=== PATIENT | male | born 1980 | race Caucasian/White ===

== ENCOUNTER 2017-07-28 08:45 | Emergency (ER) | payer BC ==
--- NOTE | 2017-07-28 09:24 | EDM.PDOC ---
ED HPI GENERAL MEDICAL PROBLEM - General Chief Complaint: Fever Stated Complaint: HIGH TEMP. Time Seen by Provider: 07/28/17 09:08 Source of Information: Reports: Patient History Limitations: Reports: No Limitations - History of Present Illness INITIAL COMMENTS - FREE TEXT/NARRATIVE: History of present illness: []Patient has had 2 days of high fevers to 103 with a cough and mild sore throat. Fevers come down with 600 mg of Advil. He denies any vomiting, diarrhea sinus pain or headache. He did not have a flu shot this year. Review of systems: As per history of present illness and below otherwise all systems reviewed and negative. Past medical history: As per history of present illness and as reviewed below otherwise noncontributory. Surgical history: As per history of present illness and as reviewed below otherwise noncontributory. Social history: No reported history of drug or alcohol abuse. Family history: As per history of present illness and as reviewed below otherwise noncontributory. Physical exam: General: Well developed, well nourished in NAD HEENT: Atraumatic, normocephalic, pupils reactive, negative for conjunctival pallor or scleral icterus, mucous membranes moist, throat clear no erythema, neck supple, nontender, trachea midline. TMs clear no sinus tenderness Lungs: Clear to auscultation, breath sounds equal bilaterally, chest nontender. No wheezing or respiratory distress Heart: S1S2, regular, negative for clicks, rubs, or JVD. Abdomen: Soft, nondistended, nontender. Negative for masses or hepatosplenomegaly. Negative for costovertebral tenderness. Pelvis: Stable nontender. Genitourinary: Deferred. Rectal: Deferred. Extremities: Atraumatic, negative for cords or calf pain. Neurovascular unremarkable. Neuro: Awake, alert, oriented. Cranial nerves II through XII unremarkable. Cerebellum unremarkable. Motor and sensory unremarkable throughout. Exam nonfocal. Diagnostics: []Chest x-ray shows Bilateral infiltrates, CBC and chemistries normal influenza negative, vital signs stable not hypoxic on room air Therapeutics: []Ceftriaxone IM given Impression: []Bilateral pneumonia Plan: []Zithromax by mouth, albuterol inhaler for shortness of breath and cough, 3 days off work follow-up with primary care return if symptoms worsen Definitive disposition and diagnosis as appropriate pending reevaluation and review of above. - Related Data Allergies Allergy/AdvReac Type Severity Reaction Status Date / Time No Known Allergies Allergy Verified 07/28/17 09:04 Home Meds: Home Meds Albuterol Sulfate [Ventolin Hfa] 8 gm IH Q4HR #1 hfa.aer.ad 07/28/17 [Rx] Azithromycin [IJD: Azithromycin] 250 mg PO DAILY #6 tab 07/28/17 [Rx] Past Medical History - Past Surgical History HEENT Surgical History: Reports: Tonsillectomy Social & Family History - Family History Family Medical History: Noncontributory - Tobacco Use Smoking Status *Q: Current Every Day Smoker Years of Tobacco use: 15 Packs/Tins Daily: 1 - Caffeine Use Caffeine Use: Reports: Coffee - Recreational Drug Use Recreational Drug Use: No ED ROS GENERAL - Review of Systems Review Of Systems: See Below (See history of present illness) ED EXAM, GENERAL - Physical Exam Exam: See Below (See history of present illness) Course - Vital Signs Last Recorded V/S: Last Vital Signs Temp 97.6 F 07/28/17 08:59 Pulse 94 07/28/17 08:59 Resp 16 07/28/17 08:59 BP 143/57 H 07/28/17 08:59 Pulse Ox 93 L 07/28/17 08:59 - Orders/Labs/Meds Orders: Active Orders 24 hr Category Date Time Status CULTURE BLOOD [BC] Stat Lab 07/28/17 09:28 Received CULTURE BLOOD [BC] Stat Lab 07/28/17 09:28 Received INFLUENZA A+B AG SCREEN [RM] Stat Lab 07/28/17 09:15 Ordered Blood Culture x2 Reflex Set [OM.PC] Stat Oth 07/28/17 09:13 Ordered Labs: Laboratory Tests 07/28/17 07/28/17 Range/Units 09:28 09:28 WBC 9.08 (4.0-11.0) K/uL RBC 4.98 (4.50-5.90) M/uL Hgb 16.0 (13.0-17.0) g/dL Hct 45.4 (38.0-50.0) % MCV 91.2 (80.0-98.0) fL MCH 32.1 H (27.0-32.0) pg MCHC 35.2 (31.0-37.0) g/dL RDW Std Deviation 42.9 (28.0-62.0) fl RDW Coeff of Rosana 13 (11.0-15.0) % Plt Count 225 (150-400) K/uL MPV 10.30 (7.40-12.00) fL Neut % (Auto) 72.7 (48.0-80.0) % Lymph % (Auto) 16.3 (16.0-40.0) % [place] % (Auto) 10.7 (0.0-15.0) % Eos % (Auto) 0.1 (0.0-7.0) % Baso % (Auto) 0.2 (0.0-1.5) % Neut # (Auto) 6.6 H (1.4-5.7) K/uL Lymph # (Auto) 1.5 (0.6-2.4) K/uL [place] # (Auto) 1.0 H (0.0-0.8) K/uL Eos # (Auto) 0.0 (0.0-0.7) K/uL Baso # (Auto) 0.0 (0.0-0.1) K/uL Nucleated RBC % 0.0 /100WBC Nucleated RBCs # 0 K/uL Sodium 135 L (136-148) mmol/L Potassium 3.6 (3.5-5.1) mmol/L Chloride 100 (98-107) mmol/L Carbon Dioxide 24.0 (21.0-32.0) mmol/L BUN 13 (7.0-18.0) mg/dL Creatinine 0.9 (0.8-1.3) mg/dL Est Cr Clr Drug Dosing 129.47 mL/min Estimated GFR (MDRD) > 60.0 ml/min Glucose 101 (74-106) mg/dL Calcium 9.1 (8.5-10.1) mg/dL Total Bilirubin 0.6 (0.2-1.0) mg/dL AST 18 (15-37) IU/L ALT 35 (14-63) IU/L Alkaline Phosphatase 81 (46-116) U/L Total Protein 7.1 (6.4-8.2) g/dL Albumin 3.3 L (3.4-5.0) g/dL Globulin 3.8 H (2.0-3.5) g/dL Albumin/Globulin Ratio 0.9 L (1.3-2.8) Meds: Medications Discontinued Medications Generic Name Dose Route Start Last Admin Trade Name Mary PRN Reason Stop Dose Admin Ceftriaxone Sodium/Dextrose 1 50 mls @ 100 mls/hr 07/28/17 10:07 07/28/17 10: 12 gm/ Premix IV 07/28/17 10:36 Not Given ONETIME ONE Ceftriaxone Sodium 1,000 mg/ 4 mls @ 4 mls/sec 07/28/17 10:11 07/28/17 10:27 Lidocaine HCl IM 07/28/17 10:12 4 mls/sec ONETIME ONE Administration Departure - Departure Time of Disposition: 11:00 Disposition: Home, Self-Care 01 Condition: Good Clinical Impression: Bilateral pneumonia - Discharge Information Prescriptions: Albuterol Sulfate [Ventolin Hfa] 8 gm IH Q4HR #1 hfa.aer.ad Azithromycin [IJD: Azithromycin] 250 mg PO DAILY #6 tab Referrals: PCP,None [Primary Care Provider] - Forms: ED Department Discharge Additional Instructions: The following information is given to patients seen in the emergency department who are being discharged to home. This information is to outline your options for follow-up care. We provide all patients seen in our emergency department with a follow-up referral. The need for follow-up, as well as the timing and circumstances, are variable depending upon the specifics of your emergency department visit. If you don't have a primary care physician on staff, we will provide you with a referral. We always advise you to contact your personal physician following an emergency department visit to inform them of the circumstance of the visit and for follow-up with them and/or the need for any referrals to a consulting specialist. The emergency department will also refer you to a specialist when appropriate. This referral assures that you have the opportunity for follow-up care with a specialist. All of these measure are taken in an effort to provide you with optimal care, which includes your follow-up. Under all circumstances we always encourage you to contact your private physician who remains a resource for coordinating your care. When calling for follow-up care, please make the office aware that this follow-up is from your recent emergency room visit. If for any reason you are refused follow-up, please contact the [facility] Emergency Department at and asked to speak to the emergency department charge nurse. Zithromax and albuterol as directed patient is to be off work for 3 days follow- up with primary care as needed. [facility] [address] [place] [id number] - My Orders Last 24 Hours: My Active Orders 07/28/17 09:13 Blood Culture x2 Reflex Set [OM.PC] Stat 07/28/17 09:15 INFLUENZA A+B AG SCREEN [RM] Stat 07/28/17 09:28 CULTURE BLOOD [BC] Stat CULTURE BLOOD [BC] Stat - Assessment/Plan Last 24 Hours: My Active Orders 07/28/17 09:13 Blood Culture x2 Reflex Set [OM.PC] Stat 07/28/17 09:15 INFLUENZA A+B AG SCREEN [RM] Stat 07/28/17 09:28 CULTURE BLOOD [BC] Stat CULTURE BLOOD [BC] Stat
--- NOTE | 2017-07-28 09:46 | CR ---
EXAMINATION: Two-view chest (PA and Lateral views). HISTORY: Shortness of breath. FINDINGS: The trachea is midline. The cardiomediastinal silhouette is within normal limits. Mild bibasilar infi ltrates, most prominent within the left retrocardiac region. No pleural effusion or pneumothorax. Osseous structures appear unremarkable. IMPRESSION: Bibasilar infiltrates, left greater than right. Likely developing pneumonia.
[2017-07-28] MEDS ORDERED: cefTRIAXone 1 GM in Premix Bag 1 BAG IV ONE (10:07)
[2017-07-28] MEDS ORDERED: cefTRIAXone 1,000 MG in Lidocaine 1% 4 ML IM ONE (10:11)
[2017-07-28 10:27] LABS: CHLORIDE,CL 100 mmol/L (98-107); SODIUM,NA 135 mmol/L (136-148)
== END 2017-07-28 11:12 | disposition home or self-care (01) ==
LOC: MW.ED 08:45
DX: J18.9 Pneumonia, unspecified organism (principal); F17.210 Nicotine dependence, cigarettes, uncomplicated
CPT/HCPCS: 36415; 71046; 80053; 85025; 87040; 87804; 96372; 99283; J0696; J2001

== ENCOUNTER 2022-07-18 17:33 | Emergency (ER) | payer BC ==
[2022-07-18] MEDS: Tetracaine HCl/PF 0.5% 4 ML Bottle EYEBOTH ONE (17:56)
[2022-07-18] MEDS: Erythromycin Base 0.5% Ophth Oint 1 GM Tube EYERT ONE (18:16)
== END 2022-07-18 18:18 | disposition home or self-care (01) ==
LOC: MW.ED 17:33
DX: T15.01XA Foreign body in cornea, right eye, initial encounter (principal)
CPT/HCPCS: 65220; 99283; A9270; J3490

== ENCOUNTER 2023-01-07 11:07 | Emergency (ER) | payer BC ==
[2023-01-07] MEDS ORDERED: Ketorolac 30 MG/ML SDV IM ONE (11:56)
[2023-01-07] MEDS ORDERED: Diazepam 2 MG Tab PO ONE (13:43)
== END 2023-01-07 14:19 | disposition home or self-care (01) ==
LOC: MW.ED 11:07
DX: M54.50 Low back pain, unspecified (principal); G89.29 Other chronic pain
CPT/HCPCS: 72100; 96372; 99283; A9270; J1885; J3360